=== PATIENT | male | born 1995 | race African-American/Black ===

== ENCOUNTER 2020-09-04 12:13 | Emergency (ER) | payer MEDICAID ==
[~2020-09-04] VITALS: Ht 180.3 cm; Wt 70.9 kg
[2020-09-04 12:20] VITALS: BP 131/81
[2020-09-04 12:42] LABS: GLUCOSE,POINT OF CARE 118 MG/DL (70-110)
== END 2020-09-04 13:41 | disposition home or self-care (01) ==
LOC: EMS 12:21
DX: B35.4 Tinea corporis (principal); F12.90 Cannabis use, unspecified, uncomplicated
CPT/HCPCS: 82962; 99283